=== PATIENT | male | born 1950 | race Caucasian/White ===

== ENCOUNTER 2017-04-05 12:08 | Day surgery (SDC) | payer MEDICARE ==
[2017-04-04 14:40] LABS: HEMOGLOBIN 12.5 g/dL (13.6-17.8)
[2017-04-04 14:41] LABS: HEMATOCRIT 37.8 % (40.0-51.0)
--- NOTE | ~2017-04-05 | OP ---
Record Of Operation [facility] [address] [place]. [address] NAME: RENÉE CLARK : 50 STATUS : [facility]#: [id number] AGE: 66 ADM/REG DATE : 04/05/17 MR#: [id number] REPORT SERV DATE: 04/05/17 DICTATED BY: HONG MENDEZ DATE: 04/05/17 REPORT STATUS : Draft TRANSCRIBED BY: MODL DATE: 04/05/17 DATE OF PROCEDURE: 04/05/2017 PROCEDURES: 1. Wide local excision of basal cell carcinoma, left ear. 2. Full-thickness skin graft. PREOPERATIVE DIAGNOSIS: Basal cell carcinoma, left ear. POSTOPERATIVE DIAGNOSIS: Basal cell carcinoma, left ear. SURGEON: Hong Mendez M.D. ANESTHESIA: IV sedation. COMPLICATION: None. FINDINGS: Are as follows: The patient was taken to the OR and placed in supine position. Then was anesthetized, prepped, draped in a standard fashion. The left ear was anesthetized with 1% Xylocaine with epinephrine as well as the postauricular area and upper cervical area. The patient had a wide excision of a basal cell carcinoma of the conchal bowl. Frozen section margins were positive around the majority of the excision as well as a deep margin positive. All margins were reexcised on the periphery. These were all negative. Deep margin was treated by removal of the perichondrium. There was no gross invasion of the cartilage. Cartilage under where the deep margin was positive and was treated with electrocautery down into the cartilage. Once all margins were clear, a full-thickness skin graft was harvested from the postauricular area. This was an incision approximately 3 cm in length. Undermining was performed. Closure was performed with a deep layer of 3-0 Vicryl suture. The subdermal layer of 4-0 chromic suture and a cutaneous closure 4-0 chromic in a horizontal mattress fashion. The full-thickness skin graft was defatted. It then was bisected and fashioned to fit the defect. It was sutured around the edges of the defect with 5-0 chromic in a horizontal mattress fashion and interrupted fashion. Both sides of the graft then were sutured together with interrupted 5-0 chromic. Adaptic gauze and ENT cotton used to form a bolster dressing. Bolster dressing was placed in the conchal bowl. This was secured with five 3-0 silk sutures in a tie-over fashion. The patient then was awakened and taken to recovery room in good condition. FLACA/ELOISE Hong Mendez M.D. / [id number] Record Of Operation [address] [address] NAME: RENÉE CLARK : 50 STATUS : [facility]#: [id number] AGE: 66 ADM/REG DATE : 04/05/17 MR#: [id number] REPORT SERV DATE: 04/05/17 DICTATED BY: HONG MENDEZ DATE: 04/05/17 REPORT STATUS : Draft TRANSCRIBED BY: ELOISE DATE: 04/05/17 CC: Hong Mendez M.D.
[~2017-04-05 12:08] MED LIST: ANALPRAM HC 1-230 GM RE; APRISO0.375 GM PO; ASAB PO; CENTRUM TAB1 TAB PO; DIABETA5 PO; GLUCOPHAGE1000 MG PO; HUMALOGPEN SC; IMOD PO; LEVEMIR SC; MERCAPTOPUR50 MG OR; MULTIVIT/MIN PO; MYCOSTATAB PO; NOVOLOG SC; P20; PRILOSEC40 MG PO; REMICADE IV; VITAMIN D1000 UNI1 PO; X5 PO; ZANTAC150 MG PO; ZOCOR40 PO; ZOFRAN ODT4 MG PO; ZOL50 PO; [UNRECOGNIZED DRUG - OTHER] RE
[2017-04-05 13:43] LABS: CHLORIDE, SERUM 106 MMOL/L (96-112); POTASSIUM, SERUM 4.1 MMOL/L (3.5-5.3); SODIUM, SERUM 139 MMOL/L (135-148)
[2017-04-05 13:44] LABS: BUN (BLOOD UREA NITROGEN) 23 MG/DL (6-23); CALCIUM, SERUM 9.2 MG/DL (8.5-10.4); CO2 (CARBON DIOXIDE) 25 MMOL/L (24-34); CREATININE 0.99 MG/DL (0.70-1.30); GFR AFRICAN AMERICAN 92 ML/MIN (>=60); GFR NON AFRICAN AMERICAN 79 ML/MIN (>=60); GLUCOSE, SERUM 167 MG/DL (60-99)
== END 2017-04-05 19:32 | disposition home or self-care (01) ==
LOC: SDC 12:08
PROVIDERS: Otolaryngology
PROC: 0HB3XZZ Excision of Left Ear Skin, External Approach (ICD-10-PCS; principal; 2017-04-05 14:00)
DX: C44.219 Basal cell carcinoma of skin of left ear and external auricular canal (principal); K21.9 Gastro-esophageal reflux disease without esophagitis; E78.00 Pure hypercholesterolemia, unspecified; K51.90 Ulcerative colitis, unspecified, without complications; E11.9 Type 2 diabetes mellitus without complications; Z79.82 Long term (current) use of aspirin; Z79.4 Long term (current) use of insulin; Z79.899 Other long term (current) drug therapy; Z90.89 Acquired absence of other organs
CPT/HCPCS: 80048; 82962; 85014; 85018; 88305; 88331; 93005; A9270-GY; J2250; J2405; J3010